=== PATIENT | female | born 1940 | race Caucasian/White ===

== ENCOUNTER 2020-07-08 07:37 | Inpatient (IN) | payer MEDICARE ==
[~2020-07-08] VITALS: Ht 152.4 cm; Wt 84.8 kg
[2020-07-08] MEDS ORDERED: SODIUM CHLORIDE 0.9% 1000ML 1,000 ML IV STA (07:56)
[2020-07-08] MEDS ORDERED: ACETAMINOPHEN 325 MG TAB PO NR (08:00)
[2020-07-08] MEDS ORDERED: PIPERACILLIN/TAZOBAC 3.375 GM in SODIUM CHLORIDE 0.9% 50ML 50 ML IV ONE (08:00)
[2020-07-08] MEDS ORDERED: ASPIRIN 81 MG CHEW TAB PO ONE (08:15)
[2020-07-08 08:28] LABS: ABG HCO3 43 mmol/L (22-26); ABG PCO2 73 mmHg (35-45); ABG PH 7.38 (7.35-7.45); ABG PO2 103 mmHg (80-105)
[2020-07-08 08:29] LABS: ABG TCO2 45
[2020-07-08 08:38] LABS: BASOPHILS % 0.2 % (0.0-1.0); EOSINOPHILS # (AUTO) 0.1 (0.0-0.4); EOSINOPHILS % 0.4 % (0.0-6.0); HEMATOCRIT 36.4 % (34.2-44.1); HEMOGLOBIN 11.4 g/dL (12.0-16.0); LYMPHOCYTES # (AUTO) 1.2 (1.0-3.2); LYMPHOCYTES % 8.7 % (18.0-39.1); MEAN CORPUSCULAR HEMOGLOBIN 32.5 pg (28-32); MEAN CORPUSCULAR HGB CONC 31.3 g/dL (31-35); MEAN CORPUSCULAR VOLUME 103.7 fL (81-99); MONOCYTES # (AUTO) 1.2 (0.2-0.8); MONOCYTES % 8.5 % (4.4-11.3); NEUTROPHILS # (AUTO) 11.4 (2.1-6.9); NEUTROPHILS % 81.8 % (38.7-80.0); PLATELET COUNT 190 x10e3/uL (140-360); RED BLOOD COUNT 3.51 x10e6/uL (3.6-5.1); RED CELL DISTRIBUTION WIDTH 12.5 % (11.7-14.4)
[2020-07-08 09:03] LABS: ALANINE AMINOTRANSFERASE 10 IU/L (0-55); ALBUMIN 3.1 g/dL (3.5-5.0); ALKALINE PHOSPHATASE 64 IU/L (40-150); ANION GAP 12.3 mmol/L (8-16); BLOOD UREA NITROGEN 8 mg/dL (7-26); BUN/CREATININE RATIO 12 (6-25); CALCIUM 9.1 mg/dL (8.4-10.2); CHLORIDE 94 mmol/L (98-107); CREATINE KINASE 40 IU/L (29-168); CREATININE, SERUM 0.69 mg/dL (0.57-1.11); EST GLOMERULAR FILTRATION RATE > 60 ML/MIN (60-); GLUCOSE 126 mg/dL (74-118); POTASSIUM 4.3 mmol/L (3.5-5.1); SODIUM 143 mmol/L (136-145)
[2020-07-08 09:09] LABS: B-TYPE NATRIURETIC PEPTIDE2 120.9 pg/mL (0-100)
[2020-07-08 09:11] LABS: CARBON DIOXIDE 41 mmol/L (22-29)
[2020-07-08] MEDS ORDERED: AZITHROMYCIN 250 MG TAB ONE (09:47)
[2020-07-08] MEDS ORDERED: ACETAMINOPHEN 325 MG TAB PO PRN (11:30)
[2020-07-08] MEDS ORDERED: BENZONATATE 100 MG CAP PO PRN (12:00)
[2020-07-08] MEDS ORDERED: SIMETHICONE 80 MG CHEW PO PRN (12:00)
[2020-07-08] MEDS ORDERED: DOCUSATE SODIUM 100 MG CAP PO PRN (12:00)
[2020-07-08] MEDS ORDERED: DIPHENHYDRAMINE HCL 25 MG CAP PO PRN (12:00)
[2020-07-08] MEDS ORDERED: HYDRALAZINE HCL 20 MG/ML VIAL IV PRN (12:00)
[2020-07-08] MEDS ORDERED: DEXTROSE 50% SYRINGE 50 ML IV PRN (12:00)
[2020-07-08] MEDS ORDERED: ONDANSETRON HCL INJ 2MG/ML 2ML 2 MG/ML VIAL IV PRN (12:00)
[2020-07-08] MEDS ORDERED: ALBUTEROL/IPRATROPIUM 3 ML NEB NEB PRN ×2 (12:00→13:00)
[2020-07-08] MEDS ORDERED: POTASSIUM CHLORIDE 20 MEQ TAB CR PO PRN (12:00)
[2020-07-08] MEDS ORDERED: LIDOCAINE 4% PATCH TP PRN (12:00)
[2020-07-08 12:10] VITALS: BP 101/64
[2020-07-08] MEDS ORDERED: SODIUM CHLORIDE 0.9% 1000ML 1,000 ML IV SCH (12:45)
[2020-07-08] MEDS ORDERED: METHYLPREDNISOLONE SOD SUCC 40 MG/ML VIAL 1ML IV SCH (12:45)
[2020-07-08] MEDS ORDERED: ACETAZOLAMIDE 250 MG TAB PO NR (13:00)
[2020-07-08 15:11] LABS: CREATINE KINASE MB 0.5 ng/mL (0-5.0)
[2020-07-08] MEDS: SODIUM CHLORIDE 0.9% 1000ML 1,000 ML IV SCH (15:15)
[2020-07-08 15:20] VITALS: BP 101/64
[2020-07-08 15:27] VITALS: BP 101/64
[2020-07-08 15:48] LABS: FREE THYROXINE INDEX 1.863 (1.4-3.8); THYROID STIMULATING HORMONE 0.731 uIU/mL (0.350-4.940)
[2020-07-08 15:49] VITALS: BP 111/55
[2020-07-08] MEDS ORDERED: IOPAMIDOL 370 MG/ML 200 ML INFUS..BTL INJ ONE (15:51)
[2020-07-08] MEDS ORDERED: SODIUM CHLORIDE 0.9% 50ML 50 ML ONE (15:51)
[2020-07-08] MEDS ORDERED: SENNA LAX8.6 MG PO (16:59)
[2020-07-08] MEDS: ENOXAPARIN SOD INJ 40 MG/0.4 ML SYR SC SCH (17:00)
[2020-07-08] MEDS: AMMONIUM LACTATE 12% LOTION 225GM BTL TOP SCH (17:00)
[2020-07-08] MEDS ORDERED: ALLEGRA ALLERGY60 MG PO (17:00)
[2020-07-08] MEDS: METHYLPREDNISOLONE SOD SUCC 40 MG/ML VIAL 1ML IV SCH (17:00)
[2020-07-08] MEDS ORDERED: AMITIZA24 MCG PO (17:01)
[2020-07-08] MEDS ORDERED: LIPITOR20 MG PO (17:01)
[2020-07-08] MEDS ORDERED: ATENOLOL50 MG PO (17:43)
[2020-07-08] MEDS: PIPERACILLIN/TAZOBAC 3.375 GM in SODIUM CHLORIDE 0.9% 50ML 50 ML IV SCH (17:54)
[2020-07-08] MEDS ORDERED: IPRAT-ALBUT 0.5-3 ML IN (18:00)
[2020-07-08] MEDS ORDERED: VITAMIN D32400 UNIT/ PO (18:00)
[2020-07-08] MEDS ORDERED: MIRTAZAPINE7.5 MG PO (18:00)
[2020-07-08] MEDS ORDERED: SALINE NOSE SPR45 ML INH (18:00)
[2020-07-08] MEDS ORDERED: BISACODYL5 MG PO (18:00)
[2020-07-08] MEDS ORDERED: MILK OF MA2400 MG/10 PO (18:01)
[2020-07-08] MEDS ORDERED: MAALOX MAXIMUM355 ML PO (18:01)
[2020-07-08] MEDS ORDERED: ARTIFICIAL TEAR15 ML OD (18:05)
[2020-07-08] MEDS ORDERED: GUAIFENESIN AC473 ML PO (18:05)
[2020-07-08] MEDS ORDERED: OS-CAL 500+D T1 EACH PO (18:10)
[2020-07-08] MEDS ORDERED: ROPINIROLE HCL1 MG PO (18:10)
[2020-07-08] MEDS ORDERED: LACTULOSE20 GM/30 M PO (18:10)
[2020-07-08] MEDS ORDERED: FLONASE ALLERG9.9 ML INH (18:10)
[2020-07-08] MEDS ORDERED: TYLENOL EXTRA500 MG PO (18:10)
[2020-07-08] MEDS ORDERED: MONTELUKAST SOD10 MG PO (18:10)
[2020-07-08] MEDS ORDERED: POLYETHYLENE G500 G3 PO (18:22)
[2020-07-08] MEDS ORDERED: OCUSOFT LID SC1 EAC1 OP (18:22)
[2020-07-08] MEDS ORDERED: ARICEPT5 MG PO (18:22)
[2020-07-08] MEDS ORDERED: VICODIN HP 10-1 EAC1 PO (18:22)
[2020-07-08] MEDS ORDERED: ACIDOPHILUS1 EAC1 PO (18:22)
[2020-07-08] MEDS ORDERED: ZYRTEC10 M3 PO (18:22)
[2020-07-08] MEDS ORDERED: PANTOPRAZOLE SO40 MG PO (18:24)
[2020-07-08] MEDS ORDERED: TRAZODONE HCL100 MG PO (18:24)
[2020-07-08] MEDS ORDERED: REGLAN10 MG PO (18:24)
[2020-07-08] MEDS ORDERED: ONDANSETRON ODT8 MG PO (18:25)
[2020-07-08] MEDS ORDERED: NYSTATIN1 EAC2 TOP (18:25)
[2020-07-08 20:00] VITALS: BP 115/60
[2020-07-08] MEDS ORDERED: MELATONIN 5 MG TABLET PO PRN (21:00)
[2020-07-08 21:08] LABS: CREATINE KINASE MB 0.5 ng/mL (0-5.0)
[2020-07-09] VITALS (8 sets, daily range): BP systolic 119–149; BP diastolic 56–80
[2020-07-09] MEDS: PIPERACILLIN/TAZOBAC 3.375 GM in SODIUM CHLORIDE 0.9% 50ML 50 ML IV SCH ×3 (02:01→17:18)
[2020-07-09] MEDS: SODIUM CHLORIDE 0.9% 1000ML 1,000 ML IV SCH (04:16)
[2020-07-09 05:39] LABS: BASOPHILS % 0.2 % (0.0-1.0); HEMATOCRIT 32.5 % (34.2-44.1); LYMPHOCYTES # (AUTO) 1.8 (1.0-3.2); LYMPHOCYTES % 10.1 % (18.0-39.1); MEAN CORPUSCULAR HEMOGLOBIN 31.8 pg (28-32); MEAN CORPUSCULAR HGB CONC 30.8 g/dL (31-35); MEAN CORPUSCULAR VOLUME 103.5 fL (81-99); MONOCYTES # (AUTO) 0.4 (0.2-0.8); MONOCYTES % 2.4 % (4.4-11.3); NEUTROPHILS % 86.8 % (38.7-80.0); PLATELET COUNT 139 x10e3/uL (140-360); RED BLOOD COUNT 3.14 x10e6/uL (3.6-5.1); RED CELL DISTRIBUTION WIDTH 12.7 % (11.7-14.4)
[2020-07-09 05:54] LABS: ALANINE AMINOTRANSFERASE 9 IU/L (0-55); ALBUMIN 2.7 g/dL (3.5-5.0); ALBUMIN/GLOBULIN RATIO 0.9 (0.8-2.0); ALKALINE PHOSPHATASE 52 IU/L (40-150); ANION GAP 13.9 mmol/L (8-16); BLOOD UREA NITROGEN 11 mg/dL (7-26); BUN/CREATININE RATIO 17 (6-25); CALCIUM 8.7 mg/dL (8.4-10.2); CARBON DIOXIDE 32 mmol/L (22-29); CHLORIDE 98 mmol/L (98-107); CREATININE, SERUM 0.65 mg/dL (0.57-1.11); EST GLOMERULAR FILTRATION RATE > 60 ML/MIN (60-); GLUCOSE 121 mg/dL (74-118); POTASSIUM 4.9 mmol/L (3.5-5.1); SODIUM 139 mmol/L (136-145)
[2020-07-09 06:05] LABS: MAGNESIUM 1.6 MG/DL (1.3-2.1); PHOSPHORUS 3.7 MG/DL (2.3-4.7)
[2020-07-09] MEDS: PANTOPRAZOLE SOD 40 MG TABEC PO SCH (07:30)
[2020-07-09] MEDS: AMMONIUM LACTATE 12% LOTION 225GM BTL TOP SCH ×2 (09:00→16:50)
[2020-07-09] MEDS: METHYLPREDNISOLONE SOD SUCC 40 MG/ML VIAL 1ML IV SCH (09:00)
[2020-07-09] MEDS: TRAMADOL HCL 50 MG TAB PO PRN (12:45)
[2020-07-09] MEDS: LORAZEPAM 0.5 MG TAB PO PRN (14:27)
[2020-07-09] MEDS: ACETAMINOPHEN 325 MG TAB PO PRN (14:27)
[2020-07-09] MEDS: ENOXAPARIN SOD INJ 40 MG/0.4 ML SYR SC SCH (16:50)
[2020-07-10] VITALS (8 sets, daily range): BP systolic 123–146; BP diastolic 55–75
[2020-07-10] MEDS: ACETAMINOPHEN 325 MG TAB PO PRN ×2 (00:30→13:29)
[2020-07-10] MEDS: PIPERACILLIN/TAZOBAC 3.375 GM in SODIUM CHLORIDE 0.9% 50ML 50 ML IV SCH ×3 (02:14→17:21)
[2020-07-10 06:54] LABS: BASOPHILS % 0.2 % (0.0-1.0); HEMATOCRIT 29.1 % (34.2-44.1); HEMOGLOBIN 9.1 g/dL (12.0-16.0); LYMPHOCYTES # (AUTO) 1.6 (1.0-3.2); LYMPHOCYTES % 18.2 % (18.0-39.1); MEAN CORPUSCULAR HEMOGLOBIN 31.8 pg (28-32); MEAN CORPUSCULAR HGB CONC 31.3 g/dL (31-35); MEAN CORPUSCULAR VOLUME 101.7 fL (81-99); MONOCYTES # (AUTO) 0.9 (0.2-0.8); MONOCYTES % 9.9 % (4.4-11.3); NEUTROPHILS # (AUTO) 6.3 (2.1-6.9); PLATELET COUNT 166 x10e3/uL (140-360); RED BLOOD COUNT 2.86 x10e6/uL (3.6-5.1); RED CELL DISTRIBUTION WIDTH 12.8 % (11.7-14.4)
[2020-07-10 07:16] LABS: ANION GAP 13.8 mmol/L (8-16); BLOOD UREA NITROGEN 10 mg/dL (7-26); BUN/CREATININE RATIO 16 (6-25); CALCIUM 8.5 mg/dL (8.4-10.2); CARBON DIOXIDE 33 mmol/L (22-29); CHLORIDE 98 mmol/L (98-107); CREATININE, SERUM 0.64 mg/dL (0.57-1.11); EST GLOMERULAR FILTRATION RATE > 60 ML/MIN (60-); GLUCOSE 75 mg/dL (74-118); POTASSIUM 3.8 mmol/L (3.5-5.1); SODIUM 141 mmol/L (136-145)
[2020-07-10] MEDS: PANTOPRAZOLE SOD 40 MG TABEC PO SCH (07:30)
[2020-07-10] MEDS: LORAZEPAM 0.5 MG TAB PO PRN ×2 (08:18→21:15)
[2020-07-10] MEDS: TRAMADOL HCL 50 MG TAB PO PRN ×2 (08:25→21:15)
[2020-07-10] MEDS: PREDNISONE 10 MG TAB PO SCH (09:00)
[2020-07-10] MEDS: AMMONIUM LACTATE 12% LOTION 225GM BTL TOP SCH ×2 (10:12→16:49)
[2020-07-10] MEDS: MEGACE 400MG/ 10ML CUP PO SCH (13:15)
[2020-07-10] MEDS: ENOXAPARIN SOD INJ 40 MG/0.4 ML SYR SC SCH (16:48)
[2020-07-11] VITALS: BP 146/72
[2020-07-11] MEDS: PIPERACILLIN/TAZOBAC 3.375 GM in SODIUM CHLORIDE 0.9% 50ML 50 ML IV SCH ×2 (02:16→09:30)
[2020-07-11 05:31] LABS: HEMATOCRIT 30.9 % (34.2-44.1); HEMOGLOBIN 9.7 g/dL (12.0-16.0)
[2020-07-11 05:54] LABS: BLOOD UREA NITROGEN 10 mg/dL (7-26); BUN/CREATININE RATIO 15 (6-25); CALCIUM 8.7 mg/dL (8.4-10.2); CARBON DIOXIDE 37 mmol/L (22-29); CHLORIDE 98 mmol/L (98-107); CREATININE, SERUM 0.67 mg/dL (0.57-1.11); EST GLOMERULAR FILTRATION RATE > 60 ML/MIN (60-); GLUCOSE 85 mg/dL (74-118); SODIUM 140 mmol/L (136-145)
[2020-07-11 07:50] VITALS: BP 139/59
[2020-07-11 08:00] VITALS: BP 139/59
[2020-07-11] MEDS: PREDNISONE 10 MG TAB PO SCH (09:30)
[2020-07-11] MEDS: MEGACE 400MG/ 10ML CUP PO SCH (09:30)
[2020-07-11] MEDS: PANTOPRAZOLE SOD 40 MG TABEC PO SCH (09:30)
[2020-07-11] MEDS: TRAMADOL HCL 50 MG TAB PO PRN (09:30)
[2020-07-11] MEDS: AMMONIUM LACTATE 12% LOTION 225GM BTL TOP SCH (10:00)
[2020-07-11] MEDS: LORAZEPAM 0.5 MG TAB PO PRN (11:19)
[2020-07-11 11:42] VITALS: BP 133/59
[2020-07-11] MEDS ORDERED: ONDANSETRON HCL 4 MG ORAL DISINTEGRATING TAB PO PRN (13:00)
[2020-07-11 16:00] VITALS: BP 154/73
== END 2020-07-11 18:09 | DRG 178 ==
LOC: ER 07:57 → ERHOLD 10:35 → MED/SURG2 11:35
PROVIDERS: ADMIT Internal Medicine; ATTEND Internal Medicine
DX: J69.0 Pneumonitis due to inhalation of food and vomit (principal); J96.10 Chronic respiratory failure, unspecified whether with hypoxia or hypercapnia; G47.33 Obstructive sleep apnea (adult) (pediatric); Z53.29 Procedure and treatment not carried out because of patient's decision for other reasons; M21.379 Foot drop, unspecified foot; E03.9 Hypothyroidism, unspecified; J18.9 Pneumonia, unspecified organism; Y95 Nosocomial condition; L82.1 Other seborrheic keratosis; Z99.81 Dependence on supplemental oxygen
CPT/HCPCS: 36415; 36600; 71045; 71260; 80048; 80053; 82550; 82553; 82805; 83036; 83605; 83735; 83880; 84100; 84436; 84443; 84479; 84484; 85014; 85018; 85025; 87040; 87070; 87205; 93005; 94660; 97139; 99284; J1650; J2543; J2920; J7030; J7512; Q9967; U0002